=== PATIENT | female | born 1980 | race African-American/Black ===

== ENCOUNTER 2018-01-07 11:10 | Emergency (ER) | payer SELFPAY | END 2018-01-07 11:40 | disposition home or self-care (01) | LOC: ER 11:40 | DX: K08.89 Other specified disorders of teeth and supporting structures (principal); Z90.710 Acquired absence of both cervix and uterus; Z88.5 Allergy status to narcotic agent; Z88.6 Allergy status to analgesic agent | CPT/HCPCS: 99281 ==

== ENCOUNTER 2018-03-02 08:02 | Emergency (ER) | payer SELFPAY | END 2018-03-02 09:44 | disposition home or self-care (01) | LOC: ER 09:44 | DX: S83.92XA Sprain of unspecified site of left knee, initial encounter (principal); I10 Essential (primary) hypertension; Z98.890 Other specified postprocedural states; X50.0XXA Overexertion from strenuous movement or load, initial encounter; Y93.89 Activity, other specified; Y99.8 Other external cause status; Y92.89 Other specified places as the place of occurrence of the external cause | CPT/HCPCS: 29505; 73564; 99284 ==

== ENCOUNTER 2018-08-10 04:41 | Emergency (ER) | payer MEDICAID ==
[~2018-08-10] VITALS: Ht 154.9 cm; Wt 81.6 kg
[~2018-08-10 04:41] MED LIST: AMOX1TAB58 PO; DOCU-109 PO; HYDR-971 PO; HYDR30CR6 RC; IBUP-1060 PO; METR500T PO; OXYC-323 PO
[2018-08-10 04:49] VITALS: BP 134/72
--- NOTE | 2018-08-10 05:22 | PHYS DOC ---
Past Medical History Past Medical History: No Pertinent History Past Surgical History: Hysterectomy, Other Additional Past Surgical Histo: KNEE SURGERY Alcohol Use: None Drug Use: None Adult General Chief Complaint Chief Complaint: LOWER BACK PAIN OR INJURY HPI HPI Patient is a 38 year old female who presents with low back pain after a fall down several steps 2-3 days ago. Patient was walking down the steps while carrying a table fell backwards and slid down multiple steps. Patient denies any loss of bowel or bladder control. Patient denies any problems walking other than pain. Pain is exacerbated by coughing or sneezing as well as movement. Patient reports getting no relief with [id number] ibuprofen and Tylenol. Despite her allergy to ketorolac that is noted above, patient is able to take oral NSAIDs. Patient denies any chest pain or difficulty breathing. Denies any numbness or tingling in her lower extremities. Patient denies any vaginal bleeding or discharge. Patient is post hysterectomy. Patient reports holding still makes the pain feel little bit better. Patient reports the pain is moderate in intensity. [] Review of Systems Review of Systems Constitutional: Denies fever or chills [] Eyes: Denies change in visual acuity, redness, or eye pain [] HENT: Denies nasal congestion or sore throat [] Respiratory: Denies cough or shortness of breath [] Cardiovascular: No chest pain or palpitations[] GI: Denies abdominal pain, nausea, vomiting, bloody stools or diarrhea [] : Denies dysuria or hematuria [] Musculoskeletal: See history of present illness[] Integument: Denies rash or skin lesions [] Neurologic: Denies headache, focal weakness or sensory changes [] Endocrine: Denies polyuria or polydipsia [] All other systems were reviewed and found to be within normal limits, except as documented in this note. Current Medications Current Medications Current Medications Medications (Trade) Dose Ordered Sig/Clovis Start Time Stop Time Status Last Admin Dose Admin Ibuprofen (Motrin) 600 mg 1X ONCE 08/10/18 05:30 08/10/18 05:31 DC 08/10/18 05:34 600 MG Orphenadrine Citrate (Norflex) 60 mg 1X ONCE 08/10/18 05:30 08/10/18 05:31 DC 08/10/18 05:34 60 MG Allergies Allergies Allergies Coded Allergies Type Severity Reaction Last Updated Verified ketorolac tromethamine Allergy Intermediate rash 11/28/14 Yes morphine Allergy Intermediate welts 12/16/14 Yes tramadol Allergy Intermediate i dont remember 11/28/14 Yes Physical Exam Physical Exam Constitutional: Well developed, well nourished, mild discomfort, non-toxic appearance. [] HENT: Normocephalic, atraumatic, bilateral external ears normal, oropharynx moist, no oral exudates, nose normal. [] Eyes: PERRLA, EOMI, conjunctiva normal, no discharge. [] Neck: Normal range of motion, no tenderness, supple, no stridor. [] Cardiovascular:Heart rate regular rhythm, no murmur [] Lungs & Thorax: Bilateral breath sounds clear to auscultation [] Abdomen: Bowel sounds normal, soft, no tenderness, no masses, no pulsatile masses. [] Skin: Warm, dry, no erythema, no rash. [] Back: Tenderness along the L4 through mid sacrum. There is no paraspinal muscle tenderness or spasm. There is no step-off or crepitus. No CVA tenderness. [] Extremities: No tenderness, no cyanosis, no clubbing, ROM intact, no edema. [] Neurologic: Alert and oriented X 3, normal motor function, normal sensory function, no focal deficits noted. [] Psychologic: Affect normal, judgement normal, mood normal. [] Current Patient Data Vital Signs Vital Signs Date Time Temp Pulse Resp B/P (MAP) Pulse Ox O2 Delivery O2 Flow Rate FiO2 08/10/18 04:49 98.1 74 14 134/72 (92) 100 Room Air 98.1 EKG EKG [] Radiology/Procedures Radiology/Procedures L-spine and sacrum x-rays were obtained that were negative for acute abnormality.[] Course & Med Decision Making Course & Med Decision Making Pertinent Labs and Imaging studies reviewed. (See chart for details) Medical decision making: There does not appear to be a fracture or subluxation. No evidence of cauda equina syndrome. No evidence of intractable pain. Will treat patient with outpatient pain medication and have her follow-up with her regular doctor. ED course: Patient arrived, was placed in bed, in tolerate exam well. Patient was transported to and from x-ray without any complications. Patient was discharged in improved condition after discussion of the laboratory findings. All questions were answered.[] Dragon Disclaimer Dragon Disclaimer This electronic medical record was generated, in whole or in part, using a voice recognition dictation system. Departure Departure Impression: Primary Impression: Contusion of back Disposition: 01 HOME, SELF-CARE Condition: GOOD Referrals: NO PCP (PCP) Patient Instructions: Back Pain, Adult, Contusion Additional Instructions: Follow-up with your regular doctor in 2 days. Return to the ER if worsening pain , loss of bowel or bladder control, or any other concerns. Scripts Meloxicam (MELOXICAM) 7.5 Mg Tablet 7.5 MG PO DAILY, #20 TAB Prov: EMILIANO PEPE DO 08/10/18 Orphenadrine Citrate (ORPHENADRINE CITRATE) 100 Mg Tablet.er 100 MG PO BID, #20 TAB.SR Prov: EMILIANO PEPE DO 08/10/18 Problem Qualifiers Primary Impression: Contusion of back Encounter type: initial encounter Laterality: unspecified laterality Qualified Codes: S20.229A - Contusion of unspecified back wall of thorax, initial encounter EMILIANO PEPE DO Aug 10, 2018 05:22
[2018-08-10] MEDS ORDERED: IBUPROFEN 600 MG TABLET. PO ONE (05:30)
[2018-08-10] MEDS ORDERED: ORPHENADRINE CITRATE 60 MG/2 ML VIAL. IM ONE (05:30)
--- NOTE | 2018-08-10 05:53 | RAD ---
SACRUM COCCYX 3V, LUMBAR SPINE 2-3V Clinical Indication: FELL DOWN STAIRS; TAILBONE AND BACK PAIN Comparison: CT abdomen and pelvis with contrast, December 16, 2014. Findings: 5 lumbar type vertebral bodies. No acute fracture or malalignment. No disc space narrowing. Mineralization is normal. Phleboliths in the pelvis. The sacroiliac joints are symmetric. Sacral arcuate lines are intact. Sacrum and coccyx alignment is maintained on the lateral view. The hip joints are intact. 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 IMPRESSION: No acute fracture. Electronically signed by: Efe Bravo MD (08/10/2018 5:50 AM) [facility]
[2018-08-10] MEDS ORDERED: MELO7.5T29 PO (06:01)
[2018-08-10] MEDS ORDERED: ORPH100T PO (06:01)
== END 2018-08-10 06:30 | disposition home or self-care (01) ==
LOC: ER 04:41
DX: S30.0XXA Contusion of lower back and pelvis, initial encounter (principal); Z90.710 Acquired absence of both cervix and uterus; Z88.5 Allergy status to narcotic agent; Z88.8 Allergy status to other drugs, medicaments and biological substances; W10.8XXA Fall (on) (from) other stairs and steps, initial encounter; Y93.01 Activity, walking, marching and hiking; Y92.89 Other specified places as the place of occurrence of the external cause; Y99.8 Other external cause status
CPT/HCPCS: 72100; 72220; 96372; 99284; J2360

== ENCOUNTER 2018-11-18 22:16 | Emergency (ER) | payer MEDICAID ==
[~2018-11-18] VITALS: Ht 154.9 cm; Wt 79.4 kg
[~2018-11-18 22:16] MED LIST changes: +HYDR-3164 PO; -HYDR-971 PO; +MELO7.5T29 PO; +ONDA4TAB12 PO; +ORPH100T PO; -OXYC-323 PO; +OXYC1TAB15 PO
[2018-11-18 23:09] LABS: BASO % 0 % (0-3); EOS % 1 % (0-3); HEMATOCRIT 38.3 % (36.0-47.0); HEMOGLOBIN 12.8 g/dL (12.0-15.5); LYMPH # 1.5 x10^3/uL (1.0-4.8); LYMPH % 25 % (24-48); MEAN CORPUSCULAR HEMOGLOBIN 30 pg (25-35); MEAN CORPUSCULAR HGB CONC 33 g/dL (31-37); MEAN CORPUSCULAR VOLUME 89 fL (79-100); MONO # 0.4 x10^3/uL (0.0-1.1); MONO % 7 % (0-9); NEUT % 67 % (31-73); PLATELET COUNT 264 x10^3/uL (140-400); RED BLOOD COUNT 4.32 x10^6/uL (3.50-5.40); RED CELL DISTRIBUTION WIDTH 12.4 % (11.5-14.5); WHITE BLOOD COUNT 5.9 x10^3/uL (4.0-11.0)
[2018-11-18 23:12] LABS: BILIRUBIN,URINE SMALL (NEG); CLARITY,URINE CLEAR; COLOR,URINE AMBER; NITRITE,URINE NEGATIVE (NEG); PROTEIN,URINE 30 mg/dL (NEG-TRACE)
[2018-11-18 23:14] LABS: CREATININE 0.8 mg/dL (0.6-1.0); GFR 96.6; POTASSIUM 3.3 mmol/L (3.5-5.1)
[2018-11-18 23:20] LABS: ALBUMIN 4.1 g/dL (3.4-5.0); ALBUMIN/GLOBULIN RATIO 1.1 (1.0-1.7); TOTAL BILIRUBIN 0.5 mg/dL (0.2-1.0); TOTAL PROTEIN 7.7 g/dL (6.4-8.2)
[2018-11-18 23:24] LABS: BACTERIA,URINE MODERATE /HPF (0-FEW); RBC,URINE OCC /HPF (0-2); SQUAMOUS EPITHELIAL CELL,UR MOD /LPF
[2018-11-18] MEDS ORDERED: fentaNYL PF VIAL 100 MCG/2 ML VIAL IV ONE (23:30)
[2018-11-18] MEDS ORDERED: CONTRAST GIVEN. MC PRN (23:30)
[2018-11-18] MEDS ORDERED: ONDANSETRON PF 4 MG/2 ML VIAL. IV ONE (23:30)
[2018-11-18] MEDS ORDERED: IOHEXOL 300 MG/ML 100ML VIAL. IV ONE (23:45)
--- NOTE | 2018-11-19 00:01 | RAD ---
PQRS Compliance Statement: One or more of the following individualized dose reduction techniques were utilized for this examination: 1. Automated exposure control 2. Adjustment of the mA and/or kV according to patient size 3. Use of iterative reconstruction technique CT ABD PELV W/ IV CONTRST ONLY Clinical Indication: RLQ pain, Comparison: CT abdomen and pelvis with contrast, December 16, 2014. Technique: Helical CT imaging of the abdomen and pelvis is performed after 75 cc of Omnipaque 300 IV contrast. Oral contrast not given. Findings: Lung bases essentially clear. Cardiac size normal. Incidental note, breast parenchyma is extremely dense. Liver, gallbladder, spleen, pancreas, adrenal glands, abdominal aorta, and kidneys are normal. Stomach unremarkable. No dilated small bowel. The appendix is normal. No colon wall thickening. No abdominal adenopathy or free fluid. Urinary bladder is decompressed, limiting evaluation. Uterus and left ovary are surgically absent. There is a 1.7 cm right ovary functional cyst. No pelvic free fluid. Mild grade 1 retrolisthesis of L5 on S1. No acute bone abnormality. IMPRESSION: 1. No acute abdominal or pelvic abnormality. The appendix is normal. 2. Small right ovary functional cyst. No pelvic free fluid. Electronically signed by: Efe Bravo MD (11/18/2018 11:58 PM) [id number]
[2018-11-19] MEDS ORDERED: fentaNYL PF VIAL 100 MCG/2 ML VIAL IV ONE ×2 (00:30→01:00)
--- NOTE | 2018-11-19 01:43 | RAD ---
INDICATION: RLQ PAIN COMPARISON: CT one day prior TECHNIQUE: Grayscale and color ultrasound images uterus and adnexa. Transabdominal images obtained. FINDINGS: Uterus not removed in this patient with history of hysterectomy and left oophorectomy. Right ovary is 36 x 26 x 24 mm with vascular flow seen. Left ovary not seen. IMPRESSION: 1. Vascular flow seen to the right ovary with suspected hypoechoic lesion within measuring up to 19 mm. Could be secondary to a dominant follicle with debris within or small cystic lesion. Electronically signed by: Ned Sparks MD (11/19/2018 1:40 AM) [facility]
[2018-11-19] MEDS ORDERED: TRAM50TA PO (01:58)
[2018-11-19 02:00] VITALS: BP 136/99
[2018-11-19] MEDS ORDERED: HYDROCODONE-IB1 EAC3 PO (02:13)
--- NOTE | 2018-11-19 05:04 | PHYS DOC ---
Past Medical History Past Medical History: No Pertinent History Additional Past Medical Histor: RIGHT OVARIAN CYST Past Surgical History: Hysterectomy, Other Additional Past Surgical Histo: KNEE SURGERY Alcohol Use: None Drug Use: None Adult General Chief Complaint Chief Complaint: ABDOMINAL PAIN HPI HPI Patient is a 38 year old [place] female with history of chronic pelvic pain, ovarian cyst, previous hysterectomy presents with persistent intermittent right lower quadrant/pelvic pain for the past several days. Pain is sharp, worse with palpation and movement. Pain is also worse with intercourse. No urinary frequency urgency or dysuria. Patient still has appendix.[] Review of Systems Review of Systems ROS as per HPI [] All other systems were reviewed and found to be within normal limits, except as documented in this note. Current Medications Current Medications Current Medications Medications (Trade) Dose Ordered Sig/Clovis Start Time Stop Time Status Last Admin Dose Admin Fentanyl Citrate (Fentanyl 2ml Vial) 50 mcg 1X ONCE 11/19/18 01:00 11/19/18 01:01 DC Info (CONTRAST GIVEN -- Rx MONITORING) 1 each PRN DAILY PRN 11/18/18 23:30 11/19/18 02:20 DC Iohexol (Omnipaque 300 Mg/ml) 75 ml 1X ONCE 11/18/18 23:45 11/18/18 23:46 DC 11/18/18 23:31 75 ML Ondansetron HCl (Zofran) 4 mg 1X ONCE 11/18/18 23:30 11/18/18 23:31 DC 11/18/18 22:55 4 MG Allergies Allergies Allergies Coded Allergies Type Severity Reaction Last Updated Verified ketorolac tromethamine Allergy Intermediate rash 11/28/14 Yes morphine Allergy Intermediate welts 12/16/14 Yes tramadol Allergy Intermediate i dont remember 11/28/14 Yes Physical Exam Physical Exam Constitutional: Well developed, well nourished, no acute distress, non-toxic appearance. [] HENT: Normocephalic, atraumatic, bilateral external ears normal, oropharynx moist, no oral exudates, nose normal. [] Eyes: PERRLA, EOMI, conjunctiva normal, no discharge. [] Neck: Normal range of motion, no tenderness, supple, no stridor. [] Cardiovascular:Heart rate regular rhythm, no murmur [] Lungs & Thorax: Bilateral breath sounds clear to auscultation [] Abdomen: Bowel sounds normal, soft, lower quadrant pain, tenderness, no rebound rigidity or guarding. [] Skin: Warm, dry, no erythema, no rash. [] Back: No tenderness, no CVA tenderness. [] Extremities: No tenderness, no cyanosis, no clubbing, ROM intact, no edema. [] Neurologic: Alert and oriented X 3, normal motor function, normal sensory function, no focal deficits noted. [] Psychologic: Affect normal, judgement normal, mood normal. [] Current Patient Data Vital Signs Vital Signs Date Time Temp Pulse Resp B/P (MAP) Pulse Ox O2 Delivery O2 Flow Rate FiO2 11/19/18 02:00 83 136/99 (111) 98 Room Air 11/19/18 00:19 18 11/18/18 22:25 98.2 98.2 Lab Values Laboratory Tests Test 11/18/18 20:23 11/18/18 22:47 Urine Collection Type Unknown Urine Color Brittany Urine Clarity Clear Urine pH 6.0 Urine Specific [place] >=1.030 Urine Protein 30 mg/dL (NEG-TRACE) Urine Glucose (UA) Negative mg/dL (NEG) Urine Ketones (Stick) 15 mg/dL (NEG) Urine Blood Negative (NEG) Urine Nitrite Negative (NEG) Urine Bilirubin Small (NEG) Urine Urobilinogen Dipstick 1.0 mg/dL (0.2 mg/dL) Urine Leukocyte Esterase Trace (NEG) Urine RBC Occ /HPF (0-2) Urine WBC 11-20 /HPF (0-4) Urine Squamous Epithelial Cells Mod /LPF Urine Bacteria Moderate /HPF (0-FEW) Urine Mucus Marked /LPF White Blood Count 5.9 x10^3/uL (4.0-11.0) Red Blood Count 4.32 x10^6/uL (3.50-5.40) Hemoglobin 12.8 g/dL (12.0-15.5) Hematocrit 38.3 % (36.0-47.0) Mean Corpuscular Volume 89 fL (79-100) Mean Corpuscular Hemoglobin 30 pg (25-35) Mean Corpuscular Hemoglobin Concent 33 g/dL (31-37) Red Cell Distribution Width 12.4 % (11.5-14.5) Platelet Count 264 x10^3/uL (140-400) Neutrophils (%) (Auto) 67 % (31-73) Lymphocytes (%) (Auto) 25 % (24-48) Monocytes (%) (Auto) 7 % (0-9) Eosinophils (%) (Auto) 1 % (0-3) Basophils (%) (Auto) 0 % (0-3) Neutrophils # (Auto) 4.0 x10^3uL (1.8-7.7) Lymphocytes # (Auto) 1.5 x10^3/uL (1.0-4.8) Monocytes # (Auto) 0.4 x10^3/uL (0.0-1.1) Eosinophils # (Auto) 0.0 x10^3/uL (0.0-0.7) Basophils # (Auto) 0.0 x10^3/uL (0.0-0.2) Sodium Level 138 mmol/L (136-145) Potassium Level 3.3 mmol/L (3.5-5.1) L Chloride Level 103 mmol/L (98-107) Carbon Dioxide Level 24 mmol/L (21-32) Anion Gap 11 (6-14) Blood Urea Nitrogen 13 mg/dL (7-20) Creatinine 0.8 mg/dL (0.6-1.0) Estimated GFR (Cockcroft-Gault) 96.6 BUN/Creatinine Ratio 16 (6-20) Glucose Level 97 mg/dL (70-99) Calcium Level 9.0 mg/dL (8.5-10.1) Total Bilirubin 0.5 mg/dL (0.2-1.0) Aspartate Amino Transferase (AST) 16 U/L (15-37) Alanine Aminotransferase (ALT) 37 U/L (14-59) Alkaline Phosphatase 58 U/L (46-116) Total Protein 7.7 g/dL (6.4-8.2) Albumin 4.1 g/dL (3.4-5.0) Albumin/Globulin Ratio 1.1 (1.0-1.7) Lipase 141 U/L (73-393) Laboratory Tests 11/18/18 22:47 Laboratory Tests 11/18/18 22:47 EKG EKG [] Radiology/Procedures Radiology/Procedures [Abdomen pelvis: Right ovarian cyst. Ultrasound: Complex right ovarian cyst, good blood flow to ovary] Course & Med Decision Making Course & Med Decision Making Pertinent Labs and Imaging studies reviewed. (See chart for details) [Right lower quadrant pain likely secondary to ovarian cyst. Recommend supportive care with [facility] follow-up.] Dragon Disclaimer Dragon Disclaimer This electronic medical record was generated, in whole or in part, using a voice recognition dictation system. Departure Departure Impression: Primary Impression: Ovarian cyst Additional Impression: Abdominal pain Disposition: HOME, SELF-CARE Condition: GOOD Patient Instructions: Pelvic Pain, Female, [id number], Ovarian Cyst Additional Instructions: You were evaluated in the emergency department for right lower quadrant/pelvic pain. Lab and imaging studies were performed. Findings are consistent with a ovarian cyst. Please take Tylenol as needed for pain and vicoprofen for additional relief. Follow-up with your [facility] for reevaluation and further management. Scripts Hydrocodone/Ibuprofen (HYDROCODONE-IBUPROFEN 7.5-200) 1 Each Tablet 1 TAB PO PRN Q6HRS PRN for PAIN, #10 TAB 0 Refills Prov: EDE ELLSWORTH DO 11/19/18 Problem Qualifiers EDE ELLSWORTH DO Nov 19, 2018 05:04
== END 2018-11-19 02:17 | disposition home or self-care (01) ==
LOC: ER 22:16
DX: N83.201 Unspecified ovarian cyst, right side (principal); G89.29 Other chronic pain; R10.2 Pelvic and perineal pain; Z90.710 Acquired absence of both cervix and uterus; Z88.5 Allergy status to narcotic agent; Z88.6 Allergy status to analgesic agent; Z88.8 Allergy status to other drugs, medicaments and biological substances
CPT/HCPCS: 36415; 74177; 76856; 80053; 81001; 83690; 85025; 87086; 96374; 96375; 96376; 99284; J2405; J3010; Q9967

== ENCOUNTER → 2019-12-18 | Outpatient (CLI) | payer BC ==
[~2019-12-18] MED LIST changes: +HYDROCODONE-IB1 EAC3 PO; +TRAM50TA PO
--- NOTE | 2019-12-18 16:26 | RAD ---
Ultrasound pelvis complete HISTORY: Right lower quadrant pain Sonographic examination of the pelvis was performed by transabdominal technique, multiple static images were obtained. The right ovary measures 2.4 x 1.7 x 1.7 cm and has normal blood flow. The left ovary and uterus are not seen consistent with the patient's history of prior removal. IMPRESSION: Negative examination. Electronically signed by: Eldon Leblanc III, MD (12/18/2019 4:23 PM) [id number]
== END | disposition home or self-care (01) ==
LOC: US 15:53
PROVIDERS: ATTEND Obstetrics & Gynecology
DX: R10.31 Right lower quadrant pain (principal); R10.2 Pelvic and perineal pain
CPT/HCPCS: 76856

== ENCOUNTER 2020-11-23 16:23 | Emergency (ER) | payer SELFPAY ==
[~2020-11-23] VITALS: Ht 154.9 cm; Wt 81.8 kg
[~2020-11-23 16:23] MED LIST changes: +OXYC1TAB19 PO
[2020-11-23 16:56] LABS: BILIRUBIN,URINE NEGATIVE (NEG); CLARITY,URINE CLEAR; COLOR,URINE YELLOW; NITRITE,URINE NEGATIVE (NEG); PROTEIN,URINE NEGATIVE (NEG-TRACE); UROBILINOGEN,URINE 0.2 mg/dL (0.2 mg/dL)
[2020-11-23] MEDS ORDERED: fentaNYL PF VIAL 100 MCG/2 ML VIAL IVP ONE ×2 (17:00→18:00)
[2020-11-23 17:09] LABS: BASO % 1 % (0-3); EOS % 1 % (0-3); HEMOGLOBIN 13.4 g/dL (12.0-15.5); LYMPH # 1.3 x10^3/uL (1.0-4.8); LYMPH % 20 % (24-48); MEAN CORPUSCULAR HEMOGLOBIN 30 pg (25-35); MEAN CORPUSCULAR HGB CONC 34 g/dL (31-37); MEAN CORPUSCULAR VOLUME 89 fL (79-100); MONO # 0.3 x10^3/uL (0.0-1.1); MONO % 5 % (0-9); NEUT # 4.6 x10^3/uL (1.8-7.7); NEUT % 74 % (31-73); PLATELET COUNT 254 x10^3/uL (140-400); WHITE BLOOD COUNT 6.2 x10^3/uL (4.0-11.0)
[2020-11-23 17:09] LABS: BACTERIA,URINE 0 /HPF (0-FEW); RBC,URINE 0 /HPF (0-2); WBC,URINE 0 /HPF (0-4)
[2020-11-23 17:15] LABS: CALCIUM 8.9 mg/dL (8.5-10.1); CREATININE 0.8 mg/dL (0.6-1.0); GFR 95.6; POTASSIUM 3.9 mmol/L (3.5-5.1)
--- NOTE | 2020-11-23 17:15 | PHYS DOC ---
Past Medical History Past Medical History: No Pertinent History Additional Past Medical Histor: RIGHT OVARIAN CYST Past Surgical History: Hysterectomy, Other Additional Past Surgical Histo: KNEE SURGERY Smoking Status: Current Every Day Smoker Alcohol Use: None Drug Use: None General Adult EDM: Chief Complaint: ABDOMINAL PAIN HPI: HPI: Patient is a 40 year old female who presents with patient states for the last 4 days she has had right ovarian intermittent pain that has been more continuous last 4 days. She states that sex is painful. She rates her pain a 10 out of 10 and states that sharp sometimes cramping. She states she is been taking Tylenol ibuprofen but it is not helping. She states that last year she had a left sided partial hysterectomy and January she supposed to go back in for the right side but her insurance would not approve it. Patient also has a history of being smoker and hypertension. Review of Systems: Review of Systems: Constitutional: Denies fever or chills. [] Eyes: Denies change in visual acuity. [] HENT: Denies nasal congestion or sore throat. [] Respiratory: Denies cough or shortness of breath. [] Cardiovascular: Denies chest pain or edema. [] GI: +Right lower quadrant abdominal pain, denies nausea, vomiting, bloody stools or diarrhea. [] : Denies dysuria. + Painful sex [] Musculoskeletal: Denies back pain or joint pain. [] Integument: Denies rash. [] Neurologic: Denies headache, focal weakness or sensory changes. [] Endocrine: Denies polyuria or polydipsia. [] Lymphatic: Denies swollen glands. [] Psychiatric: Denies depression or anxiety. [] Heart Score: Risk Factors: Risk Factors: DM, Current or recent (<one month) smoker, HTN, HLP, family history of CAD, obesity. Risk Scores: Score 0 - 3: 2.5% MACE over next 6 weeks - Discharge Home Score 4 - 6: 20.3% MACE over next 6 weeks - Admit for Clinical Observation Score 7 - 10: 72.7% MACE over next 6 weeks - Early Invasive Strategies Current Medications: Current Medications Medications (Trade) Dose Ordered Sig/Clovis Start Time Stop Time Status Last Admin Dose Admin Fentanyl Citrate (Fentanyl 2ml Vial) 50 mcg 1X ONCE 11/23/20 17:00 11/23/20 17:02 DC Allergies: Allergies: Allergies Coded Allergies Type Severity Reaction Last Updated Verified ketorolac tromethamine Allergy Intermediate rash 11/28/14 Yes morphine Allergy Intermediate welts 12/16/14 Yes tramadol Allergy Intermediate i dont remember 11/28/14 Yes pantoprazole Allergy Unknown Hives 01/02/20 Yes Physical Exam: PE: Constitutional: Well developed, well nourished, no acute distress, non-toxic appearance. [] HENT: Normocephalic, atraumatic, bilateral external ears normal, oropharynx moist, no oral exudates, nose normal. [] Eyes: PERRLA, EOMI, conjunctiva normal, no discharge. [] Neck: Normal range of motion, no tenderness, supple, no stridor. [] Cardiovascular:Heart rate regular rhythm, no murmur [] Lungs & Thorax: Bilateral breath sounds clear to auscultation [] Abdomen: Bowel sounds normal, soft, right lower quadrant tenderness, no masses, no pulsatile masses. [] Skin: Warm, dry, no erythema, no rash. [] Back: No tenderness, no CVA tenderness. [] Extremities: No tenderness, no cyanosis, no clubbing, ROM intact, no edema. [] Neurologic: Alert and oriented X 3, normal motor function, normal sensory function, no focal deficits noted. [] Psychologic: Affect normal, judgement normal, mood normal. [] Current Patient Data: Labs: Laboratory Tests Test 11/23/20 16:21 2 16:39 Urine Collection Type Unknown Urine Color Yellow Urine Clarity Clear Urine pH 8.0 (<5.0-8.0) Urine Specific [place] 1.020 (1.000-1.030) Urine Protein Negative mg/dL (NEG-TRACE) Urine Glucose (UA) Negative mg/dL (NEG) Urine Ketones (Stick) Trace mg/dL (NEG) Urine Blood Negative (NEG) Urine Nitrite Negative (NEG) Urine Bilirubin Negative (NEG) Urine Urobilinogen Dipstick 0.2 mg/dL (0.2 mg/dL) Urine Leukocyte Esterase Negative (NEG) Urine RBC 0 /HPF (0-2) Urine WBC 0 /HPF (0-4) Urine Squamous Epithelial Cells Few /LPF Urine Bacteria 0 /HPF (0-FEW) POC Urine HCG, Qualitative Hcg negative (Negative) EKG: EKG: [] Radiology/Procedures: Radiology/Procedures: [] Impression: [facility] [address] [place] [address] IMAGING REPORT Signed PATIENT: KONG ANGEL ACCOUNT: [id number] : 1980 LOCATION: ER AGE: 40 SEX: F EXAM STATUS: REG ER ORD. PHYSICIAN: GABE CANNON APRN REASON: RLQ PAIN PROCEDURE: CT ABD PELV W/ IV CONTRST ONLY CT abdomen pelvis with contrast dated 11/23/2020. Comparison made to 11/18/2018. Clinical data indication: Right lower quadrant pain. TECHNIQUE: Contiguous axial imaging the M pelvis performed after the administration of 75 cc Omnipaque 300. One or more of the following individualized dose reduction techniques were utilized for this examination: 1. Automated exposure control 2. Adjustment of the mA and/or kV according to patient size 3. Use of iterative reconstruction technique. FINDINGS: Limited images of the lung bases are clear. Heart size upper limits of normal. No pleural or pericardial effusion. Liver, spleen, pancreas, adrenal glands, gallbladder and kidneys are unremarkable. No hydronephrosis. There is a 2 mm calcific stone at the midpole left kidney. Well-circumscribed low-density focus at the midpole right kidney, most consistent with cyst. Unopacified GI tract normal in caliber and contour. No focal bowel wall thickening. Appendix normal in caliber. No ascites or lymphadenopathy. Abdominal aorta normal in caliber. Images the pelvis show nondistended urinary bladder. Uterus is surgically absent. Trace amount of free pelvic fluid. No pelvic lymphadenopathy. Bone windows show no acute findings. Mild lower lumbar spondylosis. IMPRESSION: 1. No acute abnormality of abdomen or pelvis. Normal appendix. 2. Status post hysterectomy. 3. Left-sided nephrolithiasis, nonobstructive. Electronically signed by: Issac Estevez MD (11/23/2020 6:01 PM) [facility] [place]CTATED and SIGNED BY: ISSAC ESTEVEZ MD DATE: 11/23/20 [id number] [facility] [address] [place] [address] IMAGING REPORT Signed PATIENT: KONG ANGEL ACCOUNT: [id number] : 1980 LOCATION: ER AGE: 40 SEX: F EXAM STATUS: REG ER ORD. PHYSICIAN: GABE CANNON APRN REASON: RLQ PAIN, EITHER OVARIAN OR APPENDIX PROCEDURE: PELVIS COMPLETE INDICATION: Reason: RLQ PAIN, EITHER OVARIAN OR APPENDIX / Spl. Instructions: / History: COMPARISON: CT from earlier same day FINDINGS: Focused ultrasound images are obtained of the pelvis. Right ovary measures approximately 33 x 20 x 23 mm with vascular flow. Uterus and left ovary not seen in this patient with history of hysterectomy. Appendix is not seen. Loops of bowel are seen within the pelvis as typically seen. IMPRESSION: * Vascular flow is seen to the suspected right ovary. Electronically signed by: Prince Bingham MD (11/23/2020 6:07 PM) [id number] DICTATED and SIGNED BY: PRINCE BINGHAM MD DATE: 11/23/20 [id number] Course & Med Decision Making: Course & Med Decision Making Pertinent Labs and Imaging studies reviewed. (See chart for details) See HPI. Alert and oriented x4. Ambulatory with a steady gait. Right lower quadrant tenderness with palpation. No CVA tenderness. Skin pink warm and dry. Vital signs within normal limits. Patient denies nausea, vomiting, diarrhea, constipation, chest pain, shortness of breath, vision changes, headache, dizziness, fever, back pain, urinary symptoms, abnormal vaginal discharge or abnormal bleeding. Blood work is unremarkable. Urinalysis is unremarkable. Ultrasound shows no acute findings. I have called Dr. Whitehead as patient states she tried to make an appointment with him last week but she does not have her insurance card. Dr. Whitehead states that she has to have her insurance card or be a self-pay and the patient did not want to pay that amount so she is not go to be seen for another couple weeks. [] Kaley Disclaimer: Kaley Disclaimer: This electronic medical record was generated, in whole or in part, using a voice recognition dictation system. Departure Departure Impression: Primary Impression: Pain of ovary Disposition: 01 DC HOME SELF CARE/HOMELESS Condition: STABLE Referrals: NO PCP (PCP) ANNIE WHITEHEAD Jr, MD Patient Instructions: Pelvic Pain, Female Additional Instructions: Follow up with Dr Whitehead by calling the office tomorrow. Take medication as prescribed and with food. Use a heating pad. Scripts Oxycodone/Apap 5-325 (PERCOCET 5-325 MG TABLET ) 1 Each Tablet 1 TAB PO PRN Q6HRS PRN for PAIN, #15 TAB 0 Refills Prov: GABE CANNON APRN 11/23/20 GABE CANNON APRN Nov 23, 2020 17:15
[2020-11-23 17:30] LABS: ALBUMIN 3.8 g/dL (3.4-5.0); ALBUMIN/GLOBULIN RATIO 1.2 (1.0-1.7); TOTAL BILIRUBIN 0.4 mg/dL (0.2-1.0); TOTAL PROTEIN 6.9 g/dL (6.4-8.2)
[2020-11-23] MEDS ORDERED: IOHEXOL 300 MG/ML 100ML VIAL. IV ONE (17:30)
[2020-11-23] MEDS ORDERED: CONTRAST GIVEN. MC PRN (17:30)
[2020-11-23] MEDS ORDERED: IV NORMAL SALINE 1000ML BAG 1,000 ML IV ONE (18:00)
--- NOTE | 2020-11-23 18:04 | RAD ---
CT abdomen pelvis with contrast dated 11/23/2020. Comparison made to 11/18/2018. Clinical data indication: Right lower quadrant pain. TECHNIQUE: Contiguous axial imaging the M pelvis performed after the administration of 75 cc Omnipaque 300. One or more of the following individualized dose reduction techniques were utilized for this examinat ion: 1. Automated exposure control 2. Adjustment of the mA and/or kV according to patient size 3. Use of iterative reconstruction technique. FINDINGS: Limited images of the lung bases are clear. Heart size upper limits of normal. No pleural or pericard ial effusion. Liver, spleen, pancreas, adrenal glands, gallbladder and kidneys are unremarkable. No hydronephrosis. There is a 2 mm calcific stone at the midpole left kidney. Well-circumscribed low-density focus at t he midpole right kidney, most consistent with cyst. Unopacified GI tract normal in caliber and contour. No focal bowel wall thickening. Appendix normal i n caliber. No ascites or lymphadenopathy. Abdominal aorta normal in caliber. Images the pelvis show nondistended urinary bladder. Uterus is surgically absent. Trace amount of morgan e pelvic fluid. No pelvic lymphadenopathy. Bone windows show no acute findings. Mild lower lumbar spondylosis. IMPRESSION: 1. No acute abnormality of abdomen or pelvis. Normal appendix. 2. Status post hysterectomy. 3. Left-sided nephrolithiasis, nonobstructive. Electronically signed by: Issac Estevez MD (11/23/2020 6:01 PM) [facility]
--- NOTE | 2020-11-23 18:10 | RAD ---
INDICATION: Reason: RLQ PAIN, EITHER OVARIAN OR APPENDIX / Spl. Instructions: / History: COMPARISON: CT from earlier same day FINDINGS: Focused ultrasound images are obtained of the pelvis. Right ovary measures approximately 33 x 20 x 23 mm with vascular flow. Uterus and left ovary not seen in this patient with history of hysterectomy. Appendix is not seen. Loops of bowel are seen within the pelvis as typically seen. IMPRESSION: * Vascular flow is seen to the suspected right ovary. Electronically signed by: Ned Sparks MD (11/23/2020 6:07 PM) [id number]
[2020-11-23] MEDS ORDERED: OXYC1TAB15 PO (18:36)
[2020-11-23 18:38] VITALS: BP 165/75
== END 2020-11-23 18:43 | disposition home or self-care (01) ==
LOC: ER 16:23
DX: R10.31 Right lower quadrant pain (principal); F17.200 Nicotine dependence, unspecified, uncomplicated; Z90.710 Acquired absence of both cervix and uterus; Z98.890 Other specified postprocedural states; Z88.6 Allergy status to analgesic agent; Z88.8 Allergy status to other drugs, medicaments and biological substances
CPT/HCPCS: 36415; 74177; 76856; 80053; 81001; 81025; 83690; 84484; 85025; 96361; 96374; 96376; 99285; J3010; J7030; Q9967

== ENCOUNTER 2020-12-20 15:28 | Emergency (ER) | payer SELFPAY ==
[~2020-12-20] VITALS: Ht 154.9 cm; Wt 82.0 kg
[2020-12-20 16:06] LABS: BILIRUBIN,URINE NEGATIVE (NEG); CLARITY,URINE CLEAR; COLOR,URINE YELLOW; NITRITE,URINE NEGATIVE (NEG); PH,URINE 7.5 (<5.0-8.0); PROTEIN,URINE NEGATIVE (NEG-TRACE); UROBILINOGEN,URINE 0.2 mg/dL (0.2 mg/dL)
[2020-12-20 16:13] LABS: BACTERIA,URINE FEW /HPF (0-FEW); RBC,URINE 0 /HPF (0-2); WBC,URINE OCC /HPF (0-4)
--- NOTE | 2020-12-20 16:14 | PHYS DOC ---
Past Medical History Past Medical History: No Pertinent History Additional Past Medical Histor: OVARIAN CYSTS Past Surgical History: Hysterectomy, Other Additional Past Surgical Histo: (R) KNEE SURGERY Smoking Status: Current Every Day Smoker Alcohol Use: None Drug Use: None General Adult EDM: Chief Complaint: PELVIC PAIN HPI: HPI: Patient is a 40 year old female who presents with pelvic pain that is chronic. She states she saw Dr. Whitehead 2 weeks ago and did examine her. Patient states that her pain has been fine but today she called to see if he would refill her Percocet prescription and he states that he would not because the clinic is not open and stated to come to the emergency room. She states that it is her usual pain and she rates the pain a 10 out of 10 and that sharp in her right lower quadrant of her abdomen. She states that she has a appointment with him in 2 weeks. She is here for pain control. She denies vaginal discharge, abnormal vaginal bleeding, vomiting, nausea, fever, back pain, urinary symptoms, headache, body aches, constipation, diarrhea, chest pain, shortness of air. Review of Systems: Review of Systems: Constitutional: Denies fever or chills. [] Eyes: Denies change in visual acuity. [] HENT: Denies nasal congestion or sore throat. [] Respiratory: Denies cough or shortness of breath. [] Cardiovascular: Denies chest pain or edema. [] GI: +RLQ abdominal pain, denies nausea, vomiting, bloody stools or diarrhea. [] : Denies dysuria. [] Musculoskeletal: Denies back pain or joint pain. [] Integument: Denies rash. [] Neurologic: Denies headache, focal weakness or sensory changes. [] Endocrine: Denies polyuria or polydipsia. [] Lymphatic: Denies swollen glands. [] Psychiatric: Denies depression or anxiety. [] Heart Score: C/O Chest Pain: N/A Risk Factors: Risk Factors: DM, Current or recent (<one month) smoker, HTN, HLP, family history of CAD, obesity. Risk Scores: Score 0 - 3: 2.5% MACE over next 6 weeks - Discharge Home Score 4 - 6: 20.3% MACE over next 6 weeks - Admit for Clinical Observation Score 7 - 10: 72.7% MACE over next 6 weeks - Early Invasive Strategies Allergies: Allergies: Allergies Coded Allergies Type Severity Reaction Last Updated Verified ketorolac tromethamine Allergy Intermediate rash 11/28/14 Yes morphine Allergy Intermediate welts 12/16/14 Yes tramadol Allergy Intermediate i dont remember 11/28/14 Yes pantoprazole Allergy Unknown Hives 01/02/20 Yes Physical Exam: PE: Constitutional: Well developed, well nourished, no acute distress, non-toxic appearance. [] HENT: Normocephalic, atraumatic, bilateral external ears normal, oropharynx moist, no oral exudates, nose normal. [] Eyes: PERRLA, EOMI, conjunctiva normal, no discharge. [] Neck: Normal range of motion, no tenderness, supple, no stridor. [] Cardiovascular:Heart rate regular rhythm, no murmur [] Lungs & Thorax: Bilateral breath sounds clear to auscultation [] Abdomen: Bowel sounds normal, soft, right lower quadrant tenderness, no masses, no pulsatile masses. [] Skin: Warm, dry, no erythema, no rash. [] Back: No tenderness, no CVA tenderness. [] Extremities: No tenderness, no cyanosis, no clubbing, ROM intact, no edema. [] Neurologic: Alert and oriented X 3, normal motor function, normal sensory function, no focal deficits noted. [] Psychologic: Affect normal, judgement normal, mood normal. [] Current Patient Data: Vital Signs: Vital Signs Date Time Temp Pulse Resp B/P (MAP) Pulse Ox O2 Delivery O2 Flow Rate FiO2 12/20/20 15:35 98.6 87 16 187/122 (143) 100 Room Air 98.6 EKG: EKG: [] Radiology/Procedures: Radiology/Procedures: [] Impression: [facility] [id number] [place], [place] [id number] IMAGING REPORT Signed PATIENT: KONG ANGEL ACCOUNT: [id number] : 1980 LOCATION: ER AGE: 40 SEX: F EXAM STATUS: REG ER ORD. PHYSICIAN: GABE CANNON APRN REASON: RLQ PAIN, PLEASE ALSO CHECK APPENDIX; PROCEDURE: PELVIS LIMITED OR FOLLOW UP US DPLX PELVIS LIMITED US History: Reason: RLQ PAIN, PLEASE ALSO CHECK APPENDIX; / Spl. Instructions: / History: Comparison: None Technique: Grayscale and color Doppler imaging of the pelvis was performed using transabdominal technique. Findings: Prior hysterectomy. Right ovary measures 1.8 x 1.8 x 1.1 cm. Normal Doppler flow to the right ovary. Reportedly prior left oophorectomy. No free fluid. Appendix not identified. Targeted ultrasound the right lower quadrant demonstrates no mass or fluid collection. IMPRESSION: 1. Prior hysterectomy and left oophorectomy. 2. Appendix not identified. Electronically signed by: Prince Sarmiento DO (12/20/2020 5:10 PM) [facility] DICTATED and SIGNED BY: PRINCE SARMIENTO DO DATE: 12/20/20 [id number] 0 Course & Med Decision Making: Course & Med Decision Making Pertinent Labs and Imaging studies reviewed. (See chart for details) See HPI. Alert and oriented x4. Ambulatory with a steady gait. Speaks in full clear sentences. Skin pink warm and dry. Abdomen is soft but tender with palpation on the right lower quadrant. No rebound tenderness. Patient is given Percocet in the ED. Ultrasound showed no acute findings however, it could not identify the appendix. Blood work is normal. Patient is refusing CT abdomen pelvis. Patient is educated that this could be her appendix and cannot properly diagnose her and she could go home and become very ill and or . She states that she understands the consequences but does not want the CT and does not think that that is what is wrong with her. She states that Covid in his car is just her wages. She states she just had to pay $150 to see [place] and will see him on January 05. She states that she will call him on Tuesday. She is afebrile. [] Kaley Disclaimer: Kaley Disclaimer: This electronic medical record was generated, in whole or in part, using a voice recognition dictation system. Departure Departure Impression: Primary Impression: Right lower quadrant abdominal pain Disposition: 07 AMA/ELOPED/LWBS Condition: STABLE Referrals: BENJAMIN GUZMAN DO (PCP) ANNIE WHITEHEAD Jr, MD Patient Instructions: Pelvic Pain, Female Additional Instructions: Call Dr. Whitehead on Tuesday. Return to the emergency room if you begin to run a fever, vomiting or begin having severe abdominal pain. Remember that I cannot properly diagnose you without the CT to make sure that your appendix is normal and this can result in becoming seriously ill, disability or . Drink plenty of fluids. Take medication as prescribed. Do not drive or drink alcohol with this medication as it does make you sleepy. Scripts Oxycodone/Apap 7.5-325 (PERCOCET 7.5-325 MG TABLET ) 1 Each Tablet 1 TAB PO PRN TID PRN for PAIN MDD 3 Tablet(s) for 3 Days, #10 TAB 0 Refills Prov: GABE CANNON APRN 12/20/20 GABE CANNON APRN Dec 20, 2020 16:14
[2020-12-20] MEDS ORDERED: oxyCODONE/APAP 7.5/325 1 TAB TABLET PO ONE (16:15)
--- NOTE | 2020-12-20 17:12 | RAD ---
US DPLX PELVIS LIMITED US History: Reason: RLQ PAIN, PLEASE ALSO CHECK APPENDIX; / Spl. Instructions: / History: Comparison: None Technique: Grayscale and color Doppler imaging of the pelvis was performed using transabdominal techn ique. Findings: Prior hysterectomy. Right ovary measures 1.8 x 1.8 x 1.1 cm. Normal Doppler flow to the right ovary. Reportedly prior left oophorectomy. No free fluid. Appendix not identified. Targeted ultrasound the right lower quadrant demonstrates no mass or fluid c ollection. IMPRESSION: 1. Prior hysterectomy and left oophorectomy. 2. Appendix not identified. Electronically signed by: Prince Sarmiento DO (12/20/2020 5:10 PM) [facility]
[2020-12-20] MEDS ORDERED: IV NORMAL SALINE 1000ML BAG 1,000 ML IV ONE (17:30)
[2020-12-20 17:44] VITALS: BP 183/98
[2020-12-20 17:54] LABS: BASO % 1 % (0-3); EOS % 1 % (0-3); HEMATOCRIT 39.3 % (36.0-47.0); HEMOGLOBIN 13.1 g/dL (12.0-15.5); LYMPH # 1.2 x10^3/uL (1.0-4.8); LYMPH % 22 % (24-48); MEAN CORPUSCULAR HEMOGLOBIN 30 pg (25-35); MEAN CORPUSCULAR HGB CONC 33 g/dL (31-37); MEAN CORPUSCULAR VOLUME 89 fL (79-100); MONO # 0.3 x10^3/uL (0.0-1.1); MONO % 5 % (0-9); NEUT # 3.7 x10^3/uL (1.8-7.7); NEUT % 71 % (31-73); PLATELET COUNT 267 x10^3/uL (140-400); RED CELL DISTRIBUTION WIDTH 13.3 % (11.5-14.5); WHITE BLOOD COUNT 5.3 x10^3/uL (4.0-11.0)
[2020-12-20 18:02] LABS: CALCIUM 8.5 mg/dL (8.5-10.1); CREATININE 0.8 mg/dL (0.6-1.0); GFR 95.6
[2020-12-20 18:07] LABS: ALBUMIN 3.8 g/dL (3.4-5.0); ALBUMIN/GLOBULIN RATIO 1.1 (1.0-1.7); TOTAL BILIRUBIN 0.4 mg/dL (0.2-1.0); TOTAL PROTEIN 7.2 g/dL (6.4-8.2)
[2020-12-20] MEDS ORDERED: OXYC1TAB19 PO (18:38)
[2020-12-20] MEDS ORDERED: CONTRAST GIVEN. MC PRN (18:45)
[2020-12-20] MEDS ORDERED: IOHEXOL 300 MG/ML 100ML VIAL. IV ONE (19:00)
== END 2020-12-20 18:40 | disposition left against medical advice (07) ==
LOC: ER 15:28
DX: R10.31 Right lower quadrant pain (principal); F17.200 Nicotine dependence, unspecified, uncomplicated; Z90.710 Acquired absence of both cervix and uterus; Z88.5 Allergy status to narcotic agent; Z88.6 Allergy status to analgesic agent; Z88.8 Allergy status to other drugs, medicaments and biological substances
CPT/HCPCS: 36415; 76857; 80053; 81001; 85025; 96360; 99285; J7030